=== PATIENT | female | born 1955 | race Caucasian/White ===

== ENCOUNTER → 2018-03-31 12:32 | Outpatient (CLI) | payer OTHER, MEDICAID, SELFPAY ==
--- NOTE | 2018-03-31 12:33 | DI.MG.S_ITS ---
BILATERAL DIGITAL SCREENING MAMMOGRAM 3D/2D WITH CAD: 03/31/2018 CLINICAL: Routine screening. Comparison is made to exam dated: 06/11/2014 mammogram - [facility]. There are scattered fibroglandular elements in both breasts. Current study was also evaluated with a Computer Aided Detection (CAD) system. There are benign post operative findings in the left breast. No significant masses, calcifications, or other findings are seen in either breast. There has been no significant interval change. IMPRESSION: There is no mammographic evidence of malignancy. A 1 year screening mammogram is recommended. This exam was interpreted at Station ID: [id number]. NOTE: For mammograms, a report in lay terms will be sent to the patient. Approximately 15% of breast malignancies will not be visualized mammographically. In the management of a palpable breast mass, a negative mammogram must not discourage biopsy of a clinically suspicious lesion. Electronically Signed By: Sloane frank/zaida:04/03/2018 09:00:05 letter sent: Normal Exam ACR BI-RADS Category 2: Benign Finding(s) 3342F
== END ==
PROVIDERS: Visit Provider Family Medicine
DX: Z12.31 Encounter for screening mammogram for malignant neoplasm of breast (principal)
CPT/HCPCS: 77063; 77067

== ENCOUNTER → 2019-04-30 18:15 | Outpatient (CLI) | payer OTHER, MEDICAID, SELFPAY ==
--- NOTE | 2019-04-30 18:16 | DI.MG.S_ITS ---
BILATERAL DIGITAL SCREENING MAMMOGRAM 3D/2D WITH CAD: 04/30/2019 CLINICAL: Routine screening. Comparison is made to exams dated: 03/31/2018 mammogram - [facility] and 06/11/2014 mammogram - [facility]. There are scattered fibroglandular elements in both breasts. Current study was also evaluated with a Computer Aided Detection (CAD) system. There are benign post operative findings in the left breast. No significant masses, calcifications, or other findings are seen in either breast. There has been no significant interval change. IMPRESSION: There is no mammographic evidence of malignancy. A 1 year screening mammogram is recommended. This exam was interpreted at Station ID: [id number]. NOTE: For mammograms, a report in lay terms will be sent to the patient. Approximately 15% of breast malignancies will not be visualized mammographically. In the management of a palpable breast mass, a negative mammogram must not discourage biopsy of a clinically suspicious lesion. Electronically Signed By: Jose espinoza/zaida:05/01/2019 11:04:36 letter sent: Normal Exam ACR BI-RADS Category 2: Benign Finding(s) 3342F
== END ==
PROVIDERS: PCP Student in an Organized Health Care Education/Training Program; Visit Provider Student in an Organized Health Care Education/Training Program
DX: Z12.31 Encounter for screening mammogram for malignant neoplasm of breast (principal)
CPT/HCPCS: 77063; 77067

== ENCOUNTER 2019-07-16 14:14 | Day surgery (SDC) | payer OTHER, MEDICAID, SELFPAY ==
[2019-07-16] VITALS (8 sets, daily range): BP systolic 90–124; BP diastolic 59–76; PULSE 75–108; RESP 12–18; TEMP 36.2–37.3; O2SAT 90–98; BMI 27.1
[2019-07-16] MEDS: SODIUM CHLORIDE 0.9% 1,000 ML 200 ML IV (14:37)
[2019-07-16] MEDS: ONDANSETRON 4 MG/2 ML INJ IV (14:37)
--- NOTE | 2019-07-16 15:54 | PM.HP.1 ---
History of Present Illness History of Present Illness Date Patient Seen: 07/16/19 Time Patient Seen: 15:54 Chief complaint: [id number] Narrative: This is a 64-year-old woman who is here for screening colonoscopy. She had a colonoscopy 10 years ago which was reportedly normal, and she was told to have a repeat scope in 10 years. She denies any blood in the stool or dark looking tarry colored stool. She denies any history of heart attack or stroke. She does have significant environmental allergies and asthma, for which she is on several inhalers. ROS: Thirteen system review is otherwise negative other than as mentioned below and in HPI. PE: GENERAL: Well groomed and cooperative. Appears stated age. Answers questions promptly and appropriately. Vital signs noted. HENT: Normocephalic, atraumatic. Hearing intact. Oral mucosa is pink and moist. EYES: Conjunctiva pink, sclera white, no periorbital swelling. CARDIOVASCULAR: Regular rate. No pedal edema. RESPIRATORY: Non-tachypneic, breathing comfortably on room air. GASTROINTESTINAL: Abdomen soft and non-distended GENITALURINARY: No flank tenderness. MUSCULOSKELETAL: Equal tone and mass bilaterally. SKIN: Warm, dry, soft, appropriate color for ethnicity. No other lesions, rashes, or wounds. NEURO: Alert and Oriented X 3. No gross sensory deficits, or cognitive issues. PSYCH: Appropriate affect and mood. Patient History Medical History Allergic rhinitis (Chronic 1968) Allergy desensitization therapy (Acute) Asthma (Chronic 1959) Cataracts, bilateral (Acute ~2007) Depression (Chronic) Fractures (Resolved 1986) GERD (gastroesophageal reflux disease) (Chronic) Hypercholesterolemia (Chronic) Hypothyroidism (Chronic ~2000) Obstructive sleep apnea (Chronic ~03/2017) Substance abuse (Acute) Surgical History History of tonsillectomy (1968) Hx of breast biopsy (Resolved) Status post eye surgery (2013) Family & Social History Family History Brother Age: 70 PTSD (post-traumatic stress disorder) Father Cancer Type 2 diabetes mellitus without complication, unspecified extermination supervisor insulin use status Heart disease Sister Cancer Mother No problems noted. Social History: household members spouse Tobacco & Substance use: Tobacco type smokeless tobacco Smoking Status Current every day smoker alcohol intake former Substance Use Type does not use Meds Home Medications and Allergies Home Medications Medication Instructions Recorded Confirmed Type albuterol sulfate [Ventolin HFA] 2 puff INH SEE INSTRUCTIONS PRN #1 11/24/16 07/16/19 Rx inh montelukast 10 mg PO DAILY #0 02/20/17 07/16/19 History fluticasone propionate [Aller-Junior] 1 spray INTRANASAL DAILY #0 03/21/17 07/16/19 History omeprazole 20 mg PO QDAY #90 tab 05/15/17 07/16/19 Rx beclomethasone dipropionate 80 2 puff INHALATION BID gram 07/11/18 07/16/19 History mcg/actuation HFA breath activated aerosol trazodone 150 mg tablet 150 mg PO HS #30 tab 07/11/18 07/16/19 Rx meloxicam 15 mg tablet 15 mg PO Q DAY #90 tab 02/15/19 07/16/19 Rx paroxetine HCl 30 mg tablet 30 mg PO DAILY #90 tab 03/28/19 07/16/19 Rx bupropion HCl 300 mg 24 hr tablet, 300 mg PO QAM #90 tab 06/21/19 07/16/19 Rx extended release levothyroxine 25 mcg tablet 25 mcg PO QAM #90 tab 07/10/19 07/16/19 Rx levocetirizine [Xyzal] 5 mg PO DAILY 07/16/19 07/16/19 History Allergies Allergy/AdvReac Type Severity Reaction Status Date / Time No Known Drug Allergies Allergy Verified 07/16/19 14:36 Exam Vital Signs (past 8 hours): - 07/16/19 14:47 Temperature 97.1 F L Pulse Rate 108 H Respiratory Rate 15 Blood Pressure 114/73 Pulse Oximetry 98 Oxygen Delivery Method Room Air Assessment & Plan Assessment and plan (1) At average risk for colon cancer: Current visit: Yes Status: Acute Assessment & Plan narrative: Risks and benefits of screening colonoscopy and possible polypectomy were discussed with the patient including risk of bleeding, perforation, need for additional procedures, risks of anesthesia. The patient desires to proceed with the colonoscopy procedure. Time Spent With Patient Time with patient: 15-24 minutes Quality VTE Deep Vein Thrombosis/Pulmonary Embolism Present on Admission: No
--- NOTE | 2019-07-16 16:25 | PM.OP.ENDO ---
Operative Date/Time/Diagnoses Date of procedure: 07/16/19 Time of procedure: 16:25 Pre-op diagnosis: Average risk for colon cancer Post-op diagnosis: other (Diverticulosis, grade 2 internal hemorrhoids) Procedure & Clinicians Study performed: Screening colonoscopy Same procedure as scheduled: Yes Indications: Average risk for colon cancer, 10 years since last screening colonoscopy Surgeon: Yadira Conn Procedure Notes SCOAP/Timeout: Performed Procedure in detail: The patient was brought to the room and placed in left lateral decubitus position with all bony prominences padded. A time-out was performed and then the patient was given procedural sedation starting with 2 mg of Versed and 100 mcg of fentanyl. Vitals were monitored throughout the procedure and remained stable. Once adequately sedated the procedure was begun. A rectal exam was performed revealing no abnormalities. The colonoscope was then introduced to the rectum and advanced to the cecum in the usual fashion. The cecum was identified by the appendiceal orifice, the mucosal tri-fold, and the ileocecal valve. The scope was then retracted while rotating side to side and examining each mucosal fold. Moderate to severe diverticulosis seen through the descending and sigmoid colon. No polyps or other abnormalities were seen. At the conclusion of the procedure retroflexion was performed and moderate grade 2 internal hemorrhoids without stigmata of bleeding were seen. The scope was then withdrawn from the rectum the procedure was concluded. The patient tolerated the procedure well and was transferred to the PACU in stable condition. Scope withdrawal time: 8 Sedation minutes: 19 Findings: diverticulosis and internal hemorrhoids Specimen(s): none sent Complications: none Impression: Diverticulosis, grade 2 internal hemorrhoids Post-procedure Recommendations: Colonscopy in 10 years Follow up: as needed Disposition: PACU
[2019-07-16] MEDS: MIDAZOLAM 5 MG/5 ML VIAL IV (16:27)
[2019-07-16] MEDS: fentaNYL 250 MCG/5 ML INJ IV (16:28)
== END 2019-07-16 17:31 | disposition home or self-care (01) ==
PROVIDERS: PCP Student in an Organized Health Care Education/Training Program; Referring Provider Student in an Organized Health Care Education/Training Program; Visit Provider Surgery
PROC: 0DJD8ZZ Inspection of Lower Intestinal Tract, Via Natural or Artificial Opening Endoscopic (ICD-10-PCS; CPT 45378; principal; 2019-07-16 13:45)
DX: Z12.11 Encounter for screening for malignant neoplasm of colon (principal); K64.0 First degree hemorrhoids; K57.30 Diverticulosis of large intestine without perforation or abscess without bleeding
CPT/HCPCS: 45378; 99152; J2250; J2405; J3010

== ENCOUNTER → 2020-03-19 11:47 | Outpatient (CLI) | payer MEDICARE, MEDICAID, SELFPAY ==
[2020-03-19 13:10] LABS: BUN Creatinine Ratio 15.9 (6-22); Blood Urea Nitrogen 11 mg/dL (7-17); Calcium 9.3 mg/dL (8.4-10.2); Carbon Dioxide 25 mmol/L (22-32); Chloride 105 mmol/L (98-107); Estimated Glomerular Filt Rate > 60.0 mL/min (>60); Glucose 151 mg/dL (80-110); HEMOLYSIS < 15 (0-50); Potassium 4.1 mmol/L (3.4-5.1); Sodium 137 mmol/L (137-145)
[2020-03-19 13:42] LABS: TSH w/ Reflex to FT4 2.76 uIU/mL (0.47-4.68)
== END ==
PROVIDERS: PCP Student in an Organized Health Care Education/Training Program; Referring Provider Student in an Organized Health Care Education/Training Program; Visit Provider Student in an Organized Health Care Education/Training Program
DX: E03.9 Hypothyroidism, unspecified (principal); Z79.1 Long term (current) use of non-steroidal anti-inflammatories (NSAID)
CPT/HCPCS: 36415; 80048; 84443

== ENCOUNTER → 2020-04-09 13:48 | Outpatient (CLI) | payer MEDICARE, OTHER, SELFPAY | PROVIDERS: PCP Student in an Organized Health Care Education/Training Program; Referring Provider Student in an Organized Health Care Education/Training Program; Visit Provider Student in an Organized Health Care Education/Training Program | DX: Z13.820 Encounter for screening for osteoporosis (principal); Z78.0 Asymptomatic menopausal state; M85.851 Other specified disorders of bone density and structure, right thigh; Z87.891 Personal history of nicotine dependence | CPT/HCPCS: 77080 ==

== ENCOUNTER → 2020-12-30 15:22 | Outpatient (CLI) | payer MEDICARE, MEDICAID, SELFPAY ==
--- NOTE | 2020-12-30 15:24 | DI.RAD.S_ITS ---
PROCEDURE: XR CLAVICLE LT INDICATIONS: Shoulder/clavicle pain w/o injury. Remote trauma. TECHNIQUE: 2 views of the clavicle were acquired. COMPARISON: None. FINDINGS: Bones: No fractures or dislocations. Mild to moderate acromioclavicular joint osteoarthritic changes are seen. No suspicious bony lesions. Soft tissues: No suspicious soft tissue calcifications. 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 No left clavicular fracture or dislocation. Dictated by: Danilo Garcia M.D. on 12/30/2020 at 16:16 Approved by: Danilo Garcia M.D. on 12/30/2020 at 16:17
--- NOTE | 2020-12-30 15:24 | DI.RAD.S_ITS ---
PROCEDURE: XR SHOULDER LT MIN 2V INDICATIONS: Shoulder/clavicle pain w/o injury. Remote trauma. TECHNIQUE: 3 views of the shoulder were acquired. COMPARISON: None. FINDINGS: Bones: No fractures or dislocations. Mild to moderate acromioclavicular joint osteoarthritic changes are seen. No suspicious bony lesions. Visualized ribs appear intact. Soft tissues: No suspicious soft tissue calcifications. IMPRESSION: Mild to moderate acromioclavicular joint osteoarthritis. No fracture or dislocation. Dictated by: Danilo Garcia M.D. on 12/30/2020 at 16:17 Approved by: Danilo Garcia M.D. on 12/30/2020 at 16:17
== END ==
PROVIDERS: PCP Student in an Organized Health Care Education/Training Program; Referring Provider Student in an Organized Health Care Education/Training Program; Visit Provider Student in an Organized Health Care Education/Training Program
DX: M19.012 Primary osteoarthritis, left shoulder (principal)
CPT/HCPCS: 73000; 73030

== ENCOUNTER 2021-02-23 11:30 | Outpatient (RCR) | payer MEDICARE, SELFPAY ==
--- NOTE | 2021-01-27 12:22 | ST.OPIE ---
Visit Care Team Role Provider Type Josiah Ma MD Attending Provider Physician Primary Care Provider Referring Provider Specialty: Internal Medicine [address]: [address] [place] [address], [address], [address] Email: [email or web address] Speech-Language Pathology Initial Evaluation PAPER TESTER Adult Cognitive Linguistic Eval Start: 01/26/21 11:19 Freq: Status: Active Protocol: Document 01/26/21 11:29 ZS (Rec: 01/26/21 11:30 ZS [id number]) Adult Cognitive Linguistic Evaluation Session Time Visit Start Time 11:30 Visit Stop Time 12:10 Total Visit Minutes 40 Visit Information Plan of Care Dates 01/26/2021 - 06/11/[address] Ma Reason for Referral Memory difficulties Setting Assessment Location Outpatient Care Visit Type Note Type Initial evaluation Next Note Type Next Note Type Treatment Note Patient Information Identification Type Name Medical History Per chart review, Shawnee has a history of GERD, depression, asthma, and obstructive sleep apnea (sleeps with CPAP). She is a current daily smoker. PCP note indicates deficits in functional and short term memory, difficulty tracking complex tasks, absentmindedness, and forgetting details of relatively recent conversations with her . Language(s) Spoken in the Home [place] Occupation Status Retired Hearing Hearing Level Normal Auditory History Shawnee reports she will sometimes have difficulty hearing her because he talks a lot, but does not have hearing aids. No concerns for hearing noted during assessment. Vision Vision Status Impaired Comments Bilateral cataracts removed, lenses put in eyes. Wears reading glasses. Previous Therapy Previous Speech-Language Therapy No Subjective Patient Report Shawnee is a 65 year old female . She reports difficulty remembering where she has put things, events/appointments, parts of a conversation, the current date, and occasionally where she is going when driving. No family history of memory deficits per Shawnee. Pain Intensity 4 Pain Scale Used Numeric (0 - 10) Location Left Shoulder,Lower Back Mental Status Alert,Responsive,Cooperative Informal Assessment Receptive Language Normal Yes Expressive Language Normal Yes Pragmatic Language Normal Yes Speech Normal Yes Formal Assessment Standardized Test/Screener Type Cognitive Linguistic Quick Test (CLQT) Administration Complete Results Results of the CLQT place Shawnee's score for attention, memory, executive functions, language, and visuospatial skills in the low normal range . Shawnee demonstrated multiple instances of self-correction, meaning she identified her mistake(s) during a task and corrected them. Areas of observed difficulty included the clock drawing (kristen both clock hands the same length and self-corrected one to be shorter), design memory ( selected a visually similar design and self-corrected to the correct design), and design generation (difficulty coming up with design ideas and not all designs followed prescribed rules); all of which involve visuospatial skills. Findings/Results Language Function Within normal limits Cognitive Function Within normal limits Findings Results of the CLQT indicate Shawnee's cognitive skills fall in the low normal range. She was observed to have difficulty with tasks involving visuospatial skills, as evidenced by her comments of I just go blank and ending tasks early and increased errors she self- corrected on visuospatial tasks. Shawnee reports difficulty tracking appointments and events, which may be impacted by her visuospatial skills if she has difficulty visually tracking (e.g., identifying which date/ week an event falls on when looking at a calendar). Therapy is recommended at this time to provide compensatory strategies and patient education to increase Shawnee's ability to track appointments and events, especially for medical and safety purposes. Cognitive Communication Deficits Self-awareness of Cognitive- Situational awareness ( Communication Deficits recognition of problem in context;in real time) Prognosis Prognosis Good Based on Cognitive status,Family support Plan of Care Speech-Language Treatment Yes Frequency Every other week Duration 45 minutes Patient/Caregiver Education Family/caregivers expressed understanding of evaluation, Patient requires further education/training Short Term Goals 1. Shawnee will go over results of evaluation. 2. Shawnee will participate in education regarding attention, memory, and visuospatial skills. 3. Shawnee will demonstrate sustained attention by maintaining focus during a task for 10 minutes with no more than 5 cues across 2 sessions. 4. Shawnee will initiate use of compensatory strategies (e.g. , visual marker, maintaining schedule/list, etc.) during functional reading or following direction tasks in structured 1:1 settings. 5. Shawnee will participate in a home program to demonstrate carry-over of skills to unstructured environment. Management Accountant Goals Without cueing, Shawnee will sustain attention and implement strategies as need in order to track appointments /events/conversation in her daily life. Discharge Recommendations Home
--- NOTE | 2021-01-27 12:23 | ST.OPPOC ---
Physical, Occupational & Speech Therapy At [facility] Visit Care Team Role Provider Type Josiah Ma MD Attending Provider Physician Primary Care Provider Referring Provider Address: [address] [place] [address], [address], [place], [address] Speech Pathology Plan of Care Plan of Care Dates 01/26/2021 - 06/11/2021 Language Function Within normal limits Cognitive Function Within normal limits Findings Results of the CLQT indicate Shawnee's cognitive skills fall in the low normal range. She was observed to have difficulty with tasks involving visuospatial skills, as evidenced by her comments of I just go blank and ending tasks early and increased errors she self-corrected on visuospatial tasks. Shawnee reports difficulty tracking appointments and events, which may be impacted by her visuospatial skills if she has difficulty visually tracking (e.g., identifying which date/week an event falls on when looking at a calendar). Therapy is recommended at this time to provide compensatory strategies and patient education to increase Shawnee's ability to track appointments and events, especially for medical and safety purposes. Short Term Goals 1. Shawnee will go over results of evaluation. 2. Shawnee will participate in education regarding attention, memory, and visuospatial skills. 3. Shawnee will demonstrate sustained attention by maintaining focus during a task for 10 minutes with no more than 5 cues across 2 sessions. 4. Shawnee will initiate use of compensatory strategies (e.g., visual marker, maintaining schedule/list, etc.) during functional reading or following direction tasks in structured 1:1 settings. 5. Shawnee will participate in a home program to demonstrate carry-over of skills to unstructured environment. [facility] Goals Without cueing, Shawnee will sustain attention and implement strategies as need in order to track appointments/events/conversation in her daily life. Electronically Signed by: JAREN Wiggins 01/27/21 [id number] Please Sign and Return: I have reviewed this Plan of Care and certify that the skilled therapy services above are required to meet the patient?s needs. Physician Signature Date Printed Name and Credentials Clinical Instructor Signature Printed Name and Credentials
--- NOTE | 2021-02-09 12:33 | ST.OPTN ---
Visit Care Team Role Provider Type Josiah Ma MD Attending Provider Physician Primary Care Provider Referring Provider Address: [address] [place] [address], [address], [place], [address] PHOTOLITHOGRAPHER Treatment Note PHOTOLITHOGRAPHER Treatment Note Start: 02/09/21 12:21 Freq: Status: Active Protocol: Document 02/09/21 12:21 ZS (Rec: 02/09/21 12:32 ZS [id number]) Speech Pathology Treatment Note Session Time Visit Start Time 11:30 Visit Stop Time 12:15 Total Visit Minutes 45 Visit Information Visit Number 1 Plan of Care Dates 01/26/2021 - 06/11/2021 Setting Treatment Setting Outpatient Care Visit Type Note Type Treatment Note Next Note Type Next Note Type Treatment Note General Information General Information Per chart review, Shannon has a history of GERD, depression, asthma, and obstructive sleep apnea (sleeps with CPAP). She is a current daily smoker. PCP note indicates deficits in functional and short term memory, difficulty tracking complex tasks, absentmindedness, and forgetting details of relatively recent conversations with her . Results of the CLQT indicate Shannon's cognitive skills fall in the low normal range. She was observed to have difficulty with tasks involving visuospatial skills. Subjective Identification Type Name Observations/Patient Presentation Shannon arrived on time and was engaged in treatment activities. Chief Complaint(s) Cognitive Patient Knowledge/Awareness of PHOTOLITHOGRAPHER Role Good in Treatment Objective Short Term Goals 1. Shannon will go over results of evaluation. 2. Shannon will participate in education regarding attention, memory, and visuospatial skills. 3. Shannon will demonstrate sustained attention by maintaining focus during a task for 10 minutes with no more than 5 cues across 2 sessions. 4. Shannon will initiate use of compensatory strategies (e.g., visual marker, maintaining schedule/list, etc.) during functional reading or following directions tasks in structured 1:1 settings. 5. Shannon will participate in a home program to demonstrate carry-over of skills to unstructured environment. Jail Goals Without cueing, Shannon will sustain attention and implement strategies as needed in order to track appointments/events/ conversation in her daily life . Treatment Activities Discussed results of evaluation. Provided education on visuospatial skills, memory, and attention. Discussed strategies for tracking date and events at home (i.e., crossing off days on calendar, maintaining a facilities planner). Practiced strategies for attention during word search task (i.e., using paper to isolate one line of text, using finger to direct attention to specific letters when scanning). Assessment Patient Response to Treatment Good Rehab Potential Good Impairments Identified Cognitive-Linguistic Skills Assessment of Improvement Shannon required reminders and direct coaching to implement strategies during word search task. She communicated understanding of attention and visuospatial concepts following education. Shannon mentioned she had found planners helpful in the past and would start using a facilities planner again. Reviewed with Patient Goals,Home Exercise Program Patient/Caregiver Understanding Good Plan Amount of Therapy Recommended 3 Months Frequency of Treatment Once a Week Comment Once a week or once every other week Length of Session 45 Minutes Therapeutic Contents Cognitive-Linguistic Training Provided Patient/Caregiver Instruction Home Exercise Program,Plan of Care,Questions/Concerns Therapy Recommendations Continue with Current Program
--- NOTE | 2021-02-23 12:25 | ST.OPTN ---
Visit Care Team Role Provider Type Josiah Ma MD Attending Provider Physician Primary Care Provider Referring Provider Address: [address] [place] [address], [address], [address] ESTHETIC DERMATOLOGIST Treatment Note ESTHETIC DERMATOLOGIST Treatment Note Start: 02/09/21 12:21 Freq: Status: Active Protocol: Document 02/23/21 12:21 ZS (Rec: 02/23/21 12:25 ZS [id number]) Speech Pathology Treatment Note Session Time Visit Start Time 11:30 Visit Stop Time 12:15 Total Visit Minutes 45 Visit Information Visit Number 2 Plan of Care Dates 01/26/2021 - 06/11/2021 Setting Treatment Setting Outpatient Care Visit Type Note Type Treatment Note Next Note Type Next Note Type Treatment Note General Information General Information Per chart review, Shannon has a history of GERD, depression, asthma, and obstructive sleep apnea (sleeps with CPAP). She is a current daily smoker. PCP note indicates deficits in functional and short term memory, difficulty tracking complex tasks, absentmindedness, and forgetting details of relatively recent conversations with her . Results of the CLQT indicate Shannon's cognitive skills fall in the low normal range. She was observed to have difficulty with tasks involving visuospatial skills. Subjective Identification Type Name Observations/Patient Presentation Shannon arrived on time and was engaged in treatment activities. Chief Complaint(s) Cognitive Patient Knowledge/Awareness of ESTHETIC DERMATOLOGIST Role Good in Treatment Patient/Caregiver Compliance with Home Good Exercise Program Objective Short Term Goals 1. Shannon will go over results of evaluation. 2. Shannon will participate in education regarding attention, memory, and visuospatial skills. 3. Shannon will demonstrate sustained attention by maintaining focus during a task for 10 minutes with no more than 5 cues across 2 sessions. 4. Shannon will initiate use of compensatory strategies (e.g., visual marker, maintaining schedule/list, etc.) during functional reading or following directions tasks in structured 1:1 settings. 5. Shannon will participate in a home program to demonstrate carry-over of skills to unstructured environment. Administrative Support Technician Goals Without cueing, Shannon will sustain attention and implement strategies as needed in order to track appointments/events/ conversation in her daily life . Treatment Activities Discussed implementation and modifications to strategies for tracking date and events at home (i.e., crossing off days on calendar, maintaining a planner/scheduler). Practiced strategies for attention during word search task (i.e., using paper to isolate one line of text, using finger to direct attention to specific letters when scanning). Assessment Patient Response to Treatment Good Rehab Potential Good Impairments Identified Cognitive-Linguistic Skills Assessment of Improvement Shannon reported using a planner/scheduler is going well at home, but she will sometimes forget to cross off the day until a few have passed. Discussed working crossing off days into morning routine. Shannon implemented strategies discussed in previous session when completing word searches today. She elected to use sticky notes rather than full sheets of paper to help with visual tracking because they are easier to maneuver. However, with sticky notes, Shannon jumped around and did not consistently start at the top of the page when looking for a new word. Shannon took breaks from specific words and word search puzzle as needed without prompting. Discussed her use of her finger to suzi a specific letter when she moved the sticky notes out of the way to track where she was looking. Reviewed with Patient Goals,Home Exercise Program Patient/Caregiver Understanding Good Plan Amount of Therapy Recommended 3 Months Frequency of Treatment Once a Week Comment Once a week or once every other week Length of Session 45 Minutes Therapeutic Contents Cognitive-Linguistic Training Provided Patient/Caregiver Instruction Home Exercise Program,Plan of Care,Questions/Concerns Therapy Recommendations Continue with Current Program
--- NOTE | 2021-03-23 17:29 | ST.OPDS ---
Visit Care Team Role Provider Type Josiah Ma MD Attending Provider Physician Primary Care Provider Referring Provider Address: [address] [place] [address], [address], [place], [address] APPLIANCE SERVICE SUPERVISOR Treatment Note APPLIANCE SERVICE SUPERVISOR Treatment Note Start: 02/09/21 12:21 Freq: Status: Active Protocol: Document 03/23/21 17:26 ZS (Rec: 03/23/21 17:29 ZS [id number]) Speech Pathology Treatment Note Visit Information Plan of Care Dates 01/26/2021 - 06/11/2021 Setting Treatment Setting Outpatient Care Visit Type Note Type Discharge Summary General Information General Information Per chart review, Shannon has a history of GERD, depression, asthma, and obstructive sleep apnea (sleeps with CPAP). She is a current daily smoker. PCP note indicates deficits in functional and short term memory, difficulty tracking complex tasks, absentmindedness, and forgetting details of relatively recent conversations with her . Results of the CLQT indicate Shannon's cognitive skills fall in the low normal range. She was observed to have difficulty with tasks involving visuospatial skills. Subjective Observations/Patient Presentation Shannon requested to be discharged from speech therapy over the phone. Chief Complaint(s) Cognitive Objective Short Term Goals 1. Shannon will go over results of evaluation. 2. Shannon will participate in education regarding attention, memory, and visuospatial skills. 3. Shannon will demonstrate sustained attention by maintaining focus during a task for 10 minutes with no more than 5 cues across 2 sessions. 4. Shannon will initiate use of compensatory strategies (e.g., visual marker, maintaining schedule/list, etc.) during functional reading or following directions tasks in structured 1:1 settings. 5. Shannon will participate in a home program to demonstrate carry-over of skills to unstructured environment. [facility] Goals Without cueing, Shannon will sustain attention and implement strategies as needed in order to track appointments/events/ conversation in her daily life . Assessment Impairments Identified Cognitive-Linguistic Skills Assessment of Improvement 1. Shannon will go over results of evaluation. - Goal met. 2. Shannon will participate in education regarding attention, memory, and visuospatial skills. - Goal met. 3. Shannon will demonstrate sustained attention by maintaining focus during a task for 10 minutes with no more than 5 cues across 2 sessions. - Goal not met, progress made. 4. Shannon will initiate use of compensatory strategies (e.g., visual marker, maintaining schedule/list, etc.) during functional reading or following directions tasks in structured 1:1 settings. - Goal not met, progress made. Shannon requires prompts to use techniques and strategies discussed, though uses some independently. Plan Therapy Recommendations Discharge from Speech Therapy Reason for Discharge Patient requested discharge from speech therapy.
== END 2021-07-13 09:55 ==
LOC: SP 11:30
PROVIDERS: PCP Student in an Organized Health Care Education/Training Program; Referring Provider Student in an Organized Health Care Education/Training Program; Visit Provider Student in an Organized Health Care Education/Training Program
DX: R41.3 Other amnesia (principal)
CPT/HCPCS: 92507; 96125

== ENCOUNTER → 2021-06-17 14:56 | Outpatient (CLI) | payer MEDICARE, MEDICAID, SELFPAY ==
[2021-06-17 16:25] LABS: Alanine Aminotransferase 11 IU/L (<35); Albumin 4.6 g/dL (3.5-5.0); Albumin Globulin Ratio 1.5 (1.0-2.8); Alkaline Phosphatase 58 U/L (38-126); Aspartate Aminotransferase 23 IU/L (14-36); BUN Creatinine Ratio 12.9 (6-22); Bilirubin Total 0.6 mg/dL (0.2-1.3); Blood Urea Nitrogen 11 mg/dL (7-17); Calcium 9.7 mg/dL (8.4-10.2); Carbon Dioxide 26 mmol/L (22-32); Chloride 106 mmol/L (98-107); Cholesterol 221 mg/dL (140-199); Estimated Glomerular Filt Rate > 60.0 mL/min (>60); Glucose 80 mg/dL (80-110); HDL Cholesterol 94 mg/dL (40-60); HEMOLYSIS < 15 (0-50); LDL Cholesterol Calculated 97 mg/dL (<100); Potassium 4.2 mmol/L (3.4-5.1); Sodium 138 mmol/L (137-145); Total Protein 7.6 g/dL (6.3-8.2); Triglycerides 148 mg/dL (35-150)
== END ==
PROVIDERS: PCP Student in an Organized Health Care Education/Training Program; Referring Provider Student in an Organized Health Care Education/Training Program; Visit Provider Student in an Organized Health Care Education/Training Program
DX: R73.9 Hyperglycemia, unspecified (principal); E78.5 Hyperlipidemia, unspecified; R53.82 Chronic fatigue, unspecified; Z79.899 Other long term (current) drug therapy
CPT/HCPCS: 36415; 80053; 80061; 83036

== ENCOUNTER → 2021-06-19 14:40 | Outpatient (CLI) | payer MEDICARE, MEDICAID, SELFPAY ==
--- NOTE | 2021-06-19 14:43 | DI.MG.S_ITS ---
BILATERAL DIGITAL SCREENING MAMMOGRAM 3D/2D WITH CAD: 06/19/2021 CLINICAL: Routine screening. Comparison is made to exams dated: 04/30/2019 mammogram, 03/31/2018 mammogram - [facility], and 06/11/2014 mammogram - [facility]. There are scattered fibroglandular elements in both breasts. Current study was also evaluated with a Computer Aided Detection (CAD) system. There are benign post operative findings in the left breast. No significant masses, calcifications, or other findings are seen in either breast. There has been no significant interval change. IMPRESSION: BENIGN There is no mammographic evidence of malignancy. A 1 year screening mammogram is recommended. This exam was interpreted at Station ID: [id number]. NOTE: For mammograms, a report in lay terms will be sent to the patient. Approximately 15% of breast malignancies will not be visualized mammographically. In the management of a palpable breast mass, a negative mammogram must not discourage biopsy of a clinically suspicious lesion. Electronically Signed By: Avtar larson/zaida:06/21/2021 08:39:27 letter sent: Normal Exam ACR BI-RADS Category 2: Benign Finding(s) [id number]
== END ==
PROVIDERS: PCP Student in an Organized Health Care Education/Training Program; Referring Provider Student in an Organized Health Care Education/Training Program; Visit Provider Student in an Organized Health Care Education/Training Program
DX: Z12.31 Encounter for screening mammogram for malignant neoplasm of breast (principal)
CPT/HCPCS: 77063; 77067

== ENCOUNTER → 2021-09-15 14:06 | Outpatient (CLI) | payer MEDICARE, MEDICAID, SELFPAY ==
--- NOTE | 2021-09-15 14:08 | DI.CT.S_ITS ---
PROCEDURE: CT CHEST WO CON INDICATIONS: Left upper chest pain TECHNIQUE: Noncontrast 5 mm thick sections acquired from the pulmonary apices to the posterior costophrenic angles. 1 mm lung window, 5 mm thick coronal and sagittal and 7 mm axial MIP reformats were then acquired. For radiation dose reduction, the following was used: automated exposure control, adjustment of mA and/or kV according to patient size. COMPARISON: None. FINDINGS: Image quality: Excellent. Lungs and pleura: No acute air space opacities. Scattered bilateral pulmonary calcifications are present. Moderate apically predominant emphysema is present. Noncalcified nodule within the right upper lobe anteriorly measuring 4 mm. Noncalcified nodule within the right middle lobe measuring 3 mm diameter. Subpleural nodule within the left lower lobe anteriorly measuring 4 mm, adjacent to the major fissure. No pleural effusions or pneumothorax. Central and peripheral airways are patent and normal in caliber. Mediastinum: Heart size is normal. Moderate calcification of the coronary vasculature is present. No pericardial effusion. No mediastinal adenopathy by size criteria. Thoracic aorta and central pulmonary arteries are normal in size. Esophagus is normal in caliber. Large hiatal hernia. Bones and chest wall: No suspicious bony lesions. No vertebral body compression fractures. No axillary or supraclavicular adenopathy by size criteria. Thyroid gland is within normal limits on noncontrast imaging . Abdomen: Visualized upper abdominal solid organs and bowel loops appear normal in the absence of contrast. IMPRESSION: 1. Small bilateral pulmonary nodules. Follow-up is recommended as below. 2. Emphysema. 3. Coronary artery disease. 4. Large hiatal hernia. Dictated by: Rina Adams M.D. on 09/15/2021 at 15:05 Approved by: Rina Adams M.D. on 09/15/2021 at 16:32
== END ==
PROVIDERS: PCP Student in an Organized Health Care Education/Training Program; Referring Provider Student in an Organized Health Care Education/Training Program; Visit Provider Student in an Organized Health Care Education/Training Program
DX: R07.9 Chest pain, unspecified (principal); R91.8 Other nonspecific abnormal finding of lung field; J43.9 Emphysema, unspecified; I25.10 Atherosclerotic heart disease of native coronary artery without angina pectoris; K44.9 Diaphragmatic hernia without obstruction or gangrene
CPT/HCPCS: 71250

== ENCOUNTER → 2021-09-23 15:01 | Outpatient (CLI) | payer MEDICARE, MEDICAID, SELFPAY | PROVIDERS: PCP Student in an Organized Health Care Education/Training Program; Referring Provider Student in an Organized Health Care Education/Training Program; Visit Provider Student in an Organized Health Care Education/Training Program | DX: M85.89 Other specified disorders of bone density and structure, multiple sites (principal); Z78.0 Asymptomatic menopausal state | CPT/HCPCS: 77080; 77086 ==